=== PATIENT | female | born 1995 | race Caucasian/White ===

== ENCOUNTER 2019-03-03 20:07 | Emergency (ER) | payer MEDICARE ==
[~2019-03-03] VITALS: Ht 167.6 cm; Wt 81.8 kg
[~2019-03-03 20:07] MED LIST: NECON 1/501 TAB PO
[2019-03-03 20:12] VITALS: Ht 167.6 cm; Wt 81.8 kg
[2019-03-03] MEDS ORDERED: BENADRYL25 MG PO (21:45)
[2019-03-03] MEDS ORDERED: MEDROL DOSE PACK4 MG PO (21:45)
[2019-03-03 22:11] VITALS: BP 173/89
== END 2019-03-03 22:11 | disposition home or self-care (01) ==
LOC: D.ER 20:07
DX: T78.49XA Other allergy, initial encounter (principal); T50.995A Adverse effect of other drugs, medicaments and biological substances, initial encounter

== ENCOUNTER 2020-03-20 22:00 | Emergency (ER) | payer MEDICARE ==
[~2020-03-20] VITALS: Ht 167.6 cm; Wt 85.5 kg
[~2020-03-20 22:00] MED LIST changes: +BENADRYL25 MG PO; +MEDROL DOSE PACK4 MG PO
[2020-03-20 22:07] VITALS: Ht 167.6 cm; Wt 85.5 kg
[2020-03-20] MEDS ORDERED: BYSTOLIC2.5 MG PO (22:10)
[2020-03-20] MEDS ORDERED: VYVANSE20 MG PO (22:11)
[2020-03-20 22:30] LABS: BASOPHILS 0.3 % (0-2); EOSINOPHILS 1.3 % (0-7); HEMATOCRIT 36.6 % (36.0-48.0); HEMOGLOBIN 12.8 g/dL (12-16); IMMATURE GRANULOCYTES 0.3 % (0-5); MCH 32.3 pg (26.0-34.0); MCV 92.4 fL (80.0-100.0); MONOCYTES 7.3 % (2-11); NEUTROPHILS 59.8 % (40-80); PLATELET COUNT 272 10x3/uL (130-400); RBC 3.96 10x6/uL (4.00-5.40); RDW 12.1 % (11.5-14.5); WBC 9.9 10x3/uL (4.8-10.8)
[2020-03-20 22:43] LABS: CALC OSMOLALITY 281 mosm/kg (275-300); CALCIUM 8.7 mg/dL (8.5-10.1); CARBON DIOXIDE 24.8 mmol/L (21.0-32.0); CHLORIDE - SERUM 106 mmol/L (98-107); CREATININE - SERUM 0.8 mg/dL (0.6-1.3); GLUCOSE 101 mg/dL (74-106); POTASSIUM - SERUM 3.3 mmol/L (3.5-5.1); SODIUM 142 mmol/L (136-145); UREA NITROGEN 9 mg/dL (7-18); eGFR NON AFRICAN AMERICAN > 90 mL/min (90-120)
[2020-03-20 22:57] LABS: ALBUMIN 3.5 g/dL (3.4-5.0); ALKALINE PHOSPHATASE 54 U/L (30-120); ALT (SGPT) 27 U/L (10-68); BILIRUBIN - TOTAL 0.34 mg/dL (0.2-1.3); PROTEIN - SERUM 6.8 g/dL (6.4-8.2); THYROID STIMULATING HORMONE 1.45 uIU/mL (0.36-3.74)
[2020-03-20 23:10] LABS: BILIRUBIN NEGATIVE (NEGATIVE); HCG URINE NEGATIVE (NEGATIVE); KETONE MODERATE mg/dL (NEGATIVE); NITRITE NEGATIVE (NEGATIVE); UROBILINOGEN NORMAL (NORMAL)
[2020-03-21 00:11] VITALS: BP 120/68
== END 2020-03-21 00:09 | disposition home or self-care (01) ==
LOC: D.ER 22:00
PROVIDERS: Family Medicine
DX: R07.89 Other chest pain (principal); Z86.79 Personal history of other diseases of the circulatory system; R42 Dizziness and giddiness; R00.2 Palpitations